=== PATIENT | female | born 1985 | race American Indian/Alaskan Native ===

== ENCOUNTER 2018-07-13 12:00 | Emergency (ER) | payer SELFPAY ==
[2018-07-13 12:09] VITALS: BP 115/58
[2018-07-13 12:26] LABS: HCG Qualitative,Urine Negative (Negative)
[2018-07-13 12:28] LABS: Bacteria,Urine 2+ /HPF (Negative); Bilirubin,Urine NEG (Negative); Blood,Urine NEG (Negative); Mucus,Urine FEW /HPF
[2018-07-13 12:29] LABS: Color,Urine Yellow (Yellow)
--- NOTE | 2018-07-13 13:37 | Emergency Department Report ---
ED Female HPI - General Chief complaint: Urogenital-Female Stated complaint: PAIN ON (L) SIDE Time Seen by Provider: 07/13/18 13:10 Source: patient Mode of arrival: Ambulatory Limitations: No Limitations - History of Present Illness Initial comments: This is a 32-year-old female here reported that she saw her primary care doctor and was having left flank pain and burning with urination and frequency. She said she was told that she had a urinary tract infection and was placed on Bactrim 7 days. Patient reports that she did not realize that the pharmacy did not have enough Bactrim so they gave her 6 days worth and she has to go back and get the other one day today. She says she is still having urinary burning. Denies any blood in her urine. Denies any vaginal bleeding or discharge. She has a history of PTSD and heart palpitation. Denies any nausea or vomiting or abdominal pain. Flank pain is 4-10 and cramping. Exacerbated by movement and alleviated by rest. No other complaints. MD Complaint: dysuria, other (left flank pain) Onset/Timin -: days(s) Location: other (left flank) Radiation: non-radiating Severity: mild Severity scale (0 -10): 4 Quality: cramping Consistency: constant Improves with: other (rest) Worsens with: movement Are you Now?: No Associated Symptoms: dysuria. denies: vaginal discharge, vaginal bleeding, abdominal pain, nausea/vomiting, fever/chills, headaches, loss of appetite, hematuria, rash, seizure, shortness of breath, syncope, weakness - Related Data Sexually active: Yes Previous Rx's Medication Instructions Recorded Last Taken Type Naproxen [Naprosyn] 500 mg PO BID PRN #12 tablet 07/13/18 Unknown Rx Nitrofurantoin [place]/M-Cryst 100 mg PO Q12HR 7 Days #14 capsule 07/13/18 Unknown Rx [Macrobid CAP] Allergies Allergy/AdvReac Type Severity Reaction Status Date / Time amoxicillin Allergy Hives Verified 07/13/18 12:09 ED Review of Systems ROS: Stated complaint: PAIN ON (L) SIDE Other details as noted in HPI Constitutional: denies: chills, fever ENT: denies: ear pain, throat pain, congestion Respiratory: denies: cough, shortness of breath, wheezing Cardiovascular: denies: chest pain, palpitations, dyspnea on exertion, edema, syncope, paroxysmal nocturnal dyspnea (patient name) Gastrointestinal: denies: abdominal pain, nausea, vomiting, constipation, hematemesis, hematochezia Genitourinary: dysuria, frequency. denies: urgency, hematuria, discharge, abnormal menses Musculoskeletal: denies: back pain, joint swelling, arthralgia, myalgia Skin: denies: rash Neurological: denies: headache, weakness, numbness, paresthesias, confusion, abnormal gait, vertigo ED Past Medical Hx - Past Medical History Previous Medical History?: Yes Hx Psychiatric Treatment: Yes (PTSD) Additional medical history: Heart palpatations - Surgical History Past Surgical History?: No - Family History Family history: hypertension - Social History Smoking Status: Never Smoker Substance Use Type: None - Medications Home Medications: Home Medications Medication Instructions Recorded Confirmed Last Taken Type Naproxen [Naprosyn] 500 mg PO BID PRN #12 tablet 07/13/18 Unknown Rx Nitrofurantoin [place]/M-Cryst 100 mg PO Q12HR 7 Days #14 capsule 07/13/18 Unknown Rx [Macrobid CAP] ED Physical Exam - General Limitations: No Limitations General appearance: alert, in no apparent distress - Head Head exam: Present: atraumatic, normocephalic, normal inspection - Eye Eye exam: Present: normal appearance, PERRL, EOMI Pupils: Present: normal accommodation - ENT ENT exam: Present: normal exam, normal orophraynx, mucous membranes moist, TM's normal bilaterally, normal external ear exam - Neck Neck exam: Present: normal inspection, full ROM. Absent: tenderness, lymphadenopathy - Respiratory Respiratory exam: Present: normal lung sounds bilaterally. Absent: respiratory distress, chest wall tenderness - Cardiovascular Cardiovascular Exam: Present: regular rate, normal rhythm, normal heart sounds - GI/Abdominal GI/Abdominal exam: Present: soft, normal bowel sounds. Absent: distended, tenderness, guarding, rebound, rigid, organomegaly, mass, bruit, pulsatile mass, hernia - Extremities Exam Extremities exam: Present: normal inspection, full ROM, normal capillary refill, other (No cce. + 2 pulses in all extremities, no neurovascular compromise). Absent: tenderness, pedal edema, joint swelling, calf tenderness - Back Exam Back exam: Present: normal inspection, full ROM, other (ambulates without any ). Absent: tenderness, CVA tenderness (R), CVA tenderness (L), muscle spasm, paraspinal tenderness, vertebral tenderness, rash noted - Neurological Exam Neurological exam: Present: alert, oriented X3, normal gait, reflexes normal. Absent: motor sensory deficit - Psychiatric Psychiatric exam: Present: normal affect, normal mood - Skin Skin exam: Present: warm, dry, intact, normal color. Absent: rash ED Course Vital Signs 07/13/18 12:06 Temperature 98.8 F Pulse Rate 88 Respiratory 16 Rate Blood Pressure 115/58 O2 Sat by Pulse 97 Oximetry - Reevaluation(s) Reevaluation #1: 07/13/18 13:53 Patient stable throughout ED course urinalysis with 2+ bacteria otherwise stable ED Medical Decision Making - Lab Data Lab Results 07/13/18 Range/Units 12:16 Urine Color Yellow (Yellow) Urine Turbidity Slightly-cloudy (Clear) Urine pH 6.0 (5.0-7.0) Ur Specific [place] 1.027 (1.003-1.030) Urine Protein 30 mg/dl (Negative) mg/dL Urine Glucose (UA) Neg (Negative) mg/dL Urine Ketones Tr (Negative) mg/dL Urine Blood Neg (Negative) Urine Nitrite Neg (Negative) Ur Reducing Substances Not Reportable Urine Bilirubin Neg (Negative) Urine Ictotest Not Reportable Urine Urobilinogen 4.0 (<2.0) mg/dL Ur Leukocyte Esterase Neg (Negative) Urine WBC (Auto) 5.0 (0.0-6.0) /HPF Urine RBC (Auto) 51.0 (0.0-6.0) /HPF U Epithel Cells (Auto) 4.0 (0-13.0) /HPF Urine Bacteria (Auto) 2+ (Negative) /HPF Urine Mucus Few /HPF Urine HCG, Qual Negative (Negative) - Medical Decision Making This is a 32-year-old female here reporting that she is having continued urinary burning, frequency and flank pain. Physical findings for negative CVA tenderness bilateral. Urinalysis 2+ bacteria and cloudy. Urine negative. Patient is having urine burning and she says she missed a day of her Bactrim DS. I will switch patient to Macrobid and I discussed this with her. She took 6 days worth of Bactrim. She is with urinary burning and comfortable with dysuria. Medication treatment plan discussed with the patient and told her she needs to follow up with her primary care physician in 7 days for repeat urinalysis. She voiced understanding. Patient discharged home with prescription for naproxen and Macrobid Critical care attestation.: If time is entered above; I have spent that time in minutes in the direct care of this critically ill patient, excluding procedure time. ED Disposition Clinical Impression: Acute cystitis without hematuria, Dysuria Back pain Qualifiers: Back pain location: low back pain Chronicity: acute Back pain laterality: left Sciatica presence: without sciatica Qualified Code(s): M54.5 - Low back pain Disposition: - TO HOME OR SELFCARE Is pt being admited?: No Does the pt Need Aspirin: No Condition: Stable Instructions: Dysuria (ED), Urinary Tract Infection in Women (ED) Additional Instructions: Take medication as prescribed Increasing fluid intake Follow-up up with primary care physician for repeat urinalysis in one week If condition worsens, return to the emergency room Referrals: PRIMARY CARE [Primary Care Provider] - 07/21/18 [facility] [Outside] - 07/21/18 Forms: Work/School Release Form(ED)
== END 2018-07-13 14:36 | disposition home or self-care (01) ==
LOC: ED 12:00
DX: N30.00 Acute cystitis without hematuria (principal)
CPT/HCPCS: 81001; 81025

== ENCOUNTER 2020-04-30 11:58 | Emergency (ER) | payer OTHER ==
[2020-04-30 12:05] VITALS: BP 151/100
--- NOTE | 2020-04-30 12:15 | Emergency Department Report ---
Chief Complaint: Back Pain/Injury Stated Complaint: LOW BACK PAIN Time Seen by Provider: 04/30/20 12:11 - HPI History of Present Illness: The patient was evaluated in the emergency department for symptoms described in the history of present illness. He/she was evaluated in the context of the global COVID-19 pandemic, which necessitated consideration that the patient might be at risk for infection with the virus that causes COVID-19. Institutional protocols and algorithms that pertain to the evaluation of patients at risk for COVID-19 are in a state of rapid change based on information released by regulatory bodies including the CDC and federal and state organizations. These policies and algorithms were followed during the patient's care in the emergency department. Please note that these policies, procedures and recommendations changed on a rapid basis. 34-year-old morbid obese female presents to the emergency room for acute on chronic lower back pain. Patient states that she has a history of arthritis of her back. Patient states that she last took Motrin was last night at 6 PM. Patient denies any dysuria urinary frequency vaginal discharge or pelvic pain. Patient denies any recent injuries. Patient denies any urinary or bowel incontinence. Patient denies any fever chills no nausea no vomiting. She has an allergy to amoxicillin. - Exam Vital Signs: Vital Signs 04/30/20 12:03 Temperature 98.2 F Pulse Rate 101 H Respiratory 18 Rate Blood Pressure 151/100 [Right] O2 Sat by Pulse 95 Oximetry MSE screening note: Focused history and physical exam performed. Due to findings the following was ordered: 34-year-old morbid obese female presents to the emergency room for acute on chronic lower back pain. Patient states that she has a history of arthritis of her back. Patient states that she last took Motrin was last night at 6 PM. Patient denies any dysuria urinary frequency vaginal discharge or pelvic pain. Patient denies any recent injuries. Patient denies any urinary or bowel incontinence. Patient denies any fever chills no nausea no vomiting. She has an allergy to amoxicillin. Recommend following up with a back specialist and take ibuprofen 600 to 800 mg every 6-8 hours or naproxen 2 tablets p.o. every 12 hours ED Disposition for MSE Clinical Impression: Chronic back pain Qualifiers: Back pain location: low back pain Back pain laterality: bilateral Sciatica presence: with sciatica Sciatica laterality: sciatica laterality unspecified Qualified Code(s): M54.40 - Lumbago with sciatica, unspecified side; G89.29 - Other chronic pain Disposition: Z MED SCREENING EXAM-LEFT Is pt being admited?: No Does the pt Need Aspirin: No Condition: Stable Instructions: Chronic Back Pain (ED) Additional Instructions: Recommend to take OTC Aleeve or Ibuprofen. You can take Ibuprofen 600mg to 800mg every 8 hours or Aleeve 2 tabs every 12 hours. Referrals: [facility] [Provider Group] - 3-5 Days [facility] [Provider Group] - 3-5 Days
== END 2020-04-30 12:20 | disposition left against medical advice (07) ==
LOC: ED 11:58
DX: M54.5 Low back pain (principal); Z53.21 Procedure and treatment not carried out due to patient leaving prior to being seen by health care provider